=== PATIENT | male | born 1980 | race Caucasian/White ===

== ENCOUNTER 2020-05-14 06:27 | Emergency (ER) | payer BC, SELFPAY ==
[2020-05-14 06:33] VITALS: BP 122/68; PULSE 69; RESP 20; TEMP 36.3; O2SAT 100
[2020-05-14 07:51] LABS: Basophils Percent Auto 0.4 % (0.2-1.2); Eosinophils Percent Auto 0.3 % (0-4.4); Hematocrit 44.2 % (42.0-52.0); Hemoglobin 15.3 g/dL (14.0-18.0); Immature Granulocyte Absolute 0.06 K/mm3 (0.00-0.031); Immature Granulocyte Percent A 0.6 % (0-0.5); Lymphocytes Absolute Auto 1.94 K/mm3 (0.9-3.2); Lymphocytes Percent Auto 17.8 % (18.3-44.2); Mean Corpuscular HGB Conc 34.6 g/dl (32-36); Mean Corpuscular Hemoglobin 31.2 pg (26-34); Mean Corpuscular Volume 90.2 fl (80-100); Mean Platelet Volume 9.4 fl (7.4-10.4); Monocytes Absolute Auto 0.6 K/mm3 (0.1-0.6); Monocytes Percent Auto 5.9 % (2.6-8.5); Neutrophils Absolute Auto 8.2 K/mm3 (1.3-6.7); Platelet Count Result 336 k/mm3 (150-375); Red Cell Distribution Width 11.8 % (11.5-14.5); White Blood Count 10.9 K/mm3 (4.5-10.0)
--- NOTE | 2020-05-14 07:51 | ED.ANXIETY ---
HPI - Anxiety General Chief Complaint: Psychiatric Symptoms Stated Complaint: unable to sleep/anxiety Time Seen by Provider: 05/14/20 06:51 Source: patient Mode of arrival: ambulatory Limitations: no limitations History of Present Illness HPI narrative: This patient is 39 year old male with history of anxiety who presents for evaluation of anxiety. Patient has been dealing with anxiety for 3 months and he has been taking buspar. He states 2 weeks ago he stopped smoking cigarettes and marijuana. Over the past 3 days, he states he has been having vivid dreams and he is unable to sleep. He states he wakes up after having these dreams , and he is shaky and having tingling all over. He also states that he is not wanting to eat and drink so he is feeling weak. He denies chest pain or palpitations. He was started on Zoloft yesterday by his psychiatrist. His counselor told him to come to ER for his anxiety. Patient states last night he was having suicidal thoughts, and he was thinking of ways . He states he thought about sitting his car in the garage. His states this is the third plan she has heard of. He denies history of suicide attempt. Related Data Home Medications Medication Instructions Recorded Confirmed buspirone 15 mg PO BID 05/14/20 sertraline 50 mg PO DAILY 05/14/20 Allergies Allergy/AdvReac Type Severity Reaction Status Date / Time No Known Allergies Allergy Unverified 03/22/11 18:41 Review of Systems Review of Systems: All systems reviewed & are unremarkable except as noted in HPI and below Constitutional: Constitutional: Denies chills, Reports fatigue and Denies fever(s) Cardiovascular: Cardiovascular: Denies chest pain and Denies rapid heart rate Respiratory: Respiratory: Denies cough and Denies dyspnea Gastrointestinal: Gastrointestinal: Denies abdominal pain and Denies nausea Psychiatric: Psychiatric: Reports anxiety and Reports suicidal ideation [facility] Past Medical History Medical History (Updated 05/14/20 @ 12:41 by Betzy Tracy MD) Anxiety Surgical History Surgical History (Updated 05/14/20 @ 07:58 by Betzy Tracy MD) No pertinent past surgical history Social History Social History (Updated 05/14/20 @ 07:58 by Betzy Tracy MD) Smoking status: Light tobacco smoker Tobacco type: cigarettes Additional smoking assessment comments: smokes 1 pack per week Substance use type: marijuana Last use: daily marijuana Gender identity (if verbalized by the patient): Male Exam Narrative: Exam Narrative: GENERAL: Well-appearing, well-nourished, and in no acute distress. HEAD: Normocephalic, atraumatic EYES: PERRLA and EOMI, conjunctiva clear without discharge NOSE: Nares clear, no rhinorrhea or epistaxis THROAT:Mucous membranes moist, Oropharynx normal without erythema, exudate, peritonsillar swelling or fluctuance NECK: Supple, without lymphadenopathy or mass RESPIRATORY: No respiratory distress, Airway patent, Respirations non-labored, Clear to auscultation without rales, rhonchi or wheeze HEART: Regular rate and rhythm. No murmur heard. Normal peripheral pulses. ABDOMEN: Soft, nontender, nondistended, normal active bowel sounds. No masses. No rebound or guarding, No organomegaly. EXTREMITIES: No edema, normal strength with full range of motion. SKIN: Warm, dry, normal color without rash NEURO: Alert and oriented x3. CN 2-12 grossly intact. No focal deficits. . Psych: Appearance: grossly normal Mental Status: mental status grossly normal Attitude: cooperative Thought content: Yes Suicidality present Course Reevaluation(s) Reevaluation #1: PAtient is medically cleared for psychiatric evaluation. He has been assessed by Crisis and they recommend inpatient psychaitric evaluation. Date: 05/14/20 Time: 10:27 Reevaluation #2: PAtient has bee accepted to [facility] by Dr. Rodriguez Date: 05/14/20 Time: 12:41 Vital Signs Vital signs: Vi
[2020-05-14 08:01] LABS: Ethanol < 10 mg/dL (<10)
[2020-05-14 08:02] LABS: Alanine Aminotransferase 16 U/L (4-50); Albumin Level 4.6 g/dL (3.5-5.1); Alkaline Phosphatase 65 U/L (38-126); Anion Gap 11 mmol/L (8-16); Aspartate Amino Transferase 21 U/L (17-59); Blood Urea Nitrogen 12 mg/dL (9-20); Calcium 9.4 mg/dL (8.4-10.2); Carbon Dioxide 25 mmol/L (22-30); Chloride 104 mmol/L (98-107); Estimated Glomerular Filt Rate > 60; Glucose 110 mg/dL (75-110); Potassium 3.6 mmol/L (3.4-5.0); Sodium 140 mmol/L (137-145)
[2020-05-14 08:06] LABS: Amphetamine Screen Urine Negative (Negative); Barbiturate Screen Urine Negative (Negative); Benzodiazepines Screen Urine Negative (Negative); Cannabinoid Screen Urine Positive (Negative); Cocaine Screen Urine Negative (Negative); Methadone Screen Urine Negative (Negative); Opiate Screen Urine Negative (Negative); Phencyclidine Screen Urine Negative (Negative)
[2020-05-14 08:09] LABS: Add Urine Microscopic? YES; Appearance Urine Clear (Clear); Bilirubin Urine Negative (Negative); Blood Urine Negative (Negative); Color Urine Yellow (Yellow); Glucose Urine UA Negative (Negative); Ketones Urine 1+ mg/dL (Negative); Leukocyte Esterase Ur Negative LEU/UL (Negative); Mucus Urine Heavy /lpf; Nitrate Urine Negative (Negative); Protein Urine Negative (Negative); RBC Urine 0-2 /hpf (0-2); Specific Grav Ur 1.019 (1.001-1.035); Urobilinogen Urine Negative mg/dL (<2.0); WBC Urine 0-3 /hpf
[2020-05-14 08:17] VITALS: BP 106/75; BP 108/78; BP 119/74; PULSE 63; PULSE 68; PULSE 71
--- NOTE | 2020-05-14 08:19 | PC.NURSE ---
breakfast tray ordered at this time
--- NOTE | 2020-05-14 13:59 | PC.NURSE ---
[facility] nurse called to state that they had not recived fax that was sent.
--- NOTE | 2020-05-14 14:00 | PC.NURSE ---
Meal offered to pt. Pt declined.
--- NOTE | 2020-05-14 14:05 | PC.NURSE ---
Jennifer from [facility] called to check on status of pt
--- NOTE | 2020-05-14 15:13 | PC.NURSE ---
Li from [facility] called to state that they have no beds available. States to call tomorrow morning to see about discharges.
--- NOTE | 2020-05-14 15:26 | PC.NURSE ---
Tess tucker [facility] called and states that pt is accepted but currently a bed is not available. She states a bed should be available around 7 tonight.
[2020-05-14 16:38] LABS: SARS-CoV-2 RNA PCR Negative
--- NOTE | 2020-05-14 16:42 | PC.NURSE ---
Patient dinner tray ordered at this time
[2020-05-14] MEDS: busPIRone HCL 5 MG TABLET 15 MG PO (18:32)
[2020-05-14] MEDS: SERTRALINE HCL 50 MG TABLET PO (18:33)
--- NOTE | 2020-05-14 19:51 | PC.NURSE ---
gave report to danita nino pt has a room @ [place] [phone]
[2020-05-14 20:07] VITALS: BP 117/73; PULSE 76; RESP 16; TEMP 36.7; O2SAT 96
== END 2020-05-14 20:52 ==
PROVIDERS: Emergency Provider General Practice; PCP Physician Assistant
DX: F41.9 Anxiety disorder, unspecified (principal); R45.851 Suicidal ideations; Z20.828 Contact with and (suspected) exposure to other viral communicable diseases; Z87.891 Personal history of nicotine dependence
CPT/HCPCS: 36415; 80053; 80307; 81001; 84443; 85025; 87635; 99285; A9270; C9803; U0003